=== PATIENT | male | born 1975 | race Caucasian/White ===

== ENCOUNTER 2019-12-14 20:19 | Emergency (ER) | payer OTHER ==
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
[2019-12-14] MEDS ORDERED: Ondansetron 4 MG/2 ML SDV ONE (22:21)
[2019-12-14] MEDS ORDERED: LORazepam 2 MG/ML SDV ONE (22:22)
[2019-12-14] MEDS ORDERED: LORazepam 2 MG/ML SDV IVPUSH ONE (22:39)
[2019-12-14] MEDS ORDERED: Ondansetron 4 MG/2 ML SDV IVPUSH ONE (22:40)
--- NOTE | 2019-12-15 08:48 | CT ---
Head CT Technique: Multiple axial sections through the brain were obtained. Intravenous contrast was not utilized. Comparison: No prior intracranial imaging is available. Findings: Ventricles along with basal cisterns and sulci over the convexities are within normal limits for the patient's age. Fracture is identified within the right occipital bone. Fracture extends into the right mastoid sinuses and most likely extends into the middle ear cavity as a blood is seen within the middle ear cavity. Blood noted within the right mastoid sinuses. Minimal amount of air is noted intracranially. Small subdural hematoma is noted over the right posterior parietal convexity. Subdural hematoma measures approximately 3 mm in thickness. Possible minimal subarachnoid hemorrhage within the base of the frontal lobes bilaterally compatible with contrecoup injury. Impression: 1. Right occipital skull fracture which shows no displacement. Fracture extends into the skull base involving the right mastoid sinus and likely extends into the right middle ear cavity. Blood is noted within the right middle ear cavity and right mastoid sinus. 2. Small amount of air is noted intracranially in this area. 3. Small subdural hematoma over the right posterior parietal convexity with thickness of 3 mm. 4. Probable minimal contrecoup areas of hemorrhage within the inferior frontal lobes bilaterally compatible with minimal subarachnoid hemorrhage. Diagnostic code #5 This report was dictated in MDT I mostly agree with preliminary report from [facility] (additional small subdural hematoma as noted above), finalized on 12/14/19, 9:52 PM Central Daylight Time, code #2
== END 2019-12-14 22:30 ==
LOC: JD.ED 20:19
DX: S06.6X9A Traumatic subarachnoid hemorrhage with loss of consciousness of unspecified duration, initial encounter (principal); S02.0XXA Fracture of vault of skull, initial encounter for closed fracture; G93.89 Other specified disorders of brain; F10.120 Alcohol abuse with intoxication, uncomplicated; S50.312A Abrasion of left elbow, initial encounter; S30.810A Abrasion of lower back and pelvis, initial encounter; V86.59XA Driver of other special all-terrain or other off-road motor vehicle injured in nontraffic accident, initial encounter
CPT/HCPCS: 36415; 70450; 80053; 80307; 85025; 96374; 96375; 99285; J2060; J2405